=== PATIENT | female | born 1955 | race Caucasian/White ===

== ENCOUNTER → 2019-02-18 | Outpatient (CLI) | payer MEDICARE ==
--- NOTE | 2019-02-18 13:13 | RAD ---
EXAM: Right hip, 2 views; lumbar spine, 3 views. HISTORY: Pain. COMPARISON: None. FINDINGS: Right hip: 2 views of the right hip are obtained. There is no fracture, dislocation or subluxation. There are suspected small bone islands. Lumbar spine: 3 views of the lumbar spine are obtained. There is no significant listhesis. There is degenerative endplate remodeling and facet arthropathy at all levels. There is relative preservation of the disc spaces at L4-L5 and L5-S1. IMPRESSION: 1. Multilevel degenerative change involving the lumbar spine, described above. 2. No acute osseous finding. Electronically signed by: Netta Thapa MD (02/18/2019 1:11 PM) [id number]
== END | disposition home or self-care (01) ==
LOC: DXRAD 10:27
PROVIDERS: ATTEND Family Medicine
DX: M47.816 Spondylosis without myelopathy or radiculopathy, lumbar region (principal); M25.551 Pain in right hip
CPT/HCPCS: 72100; 73502